=== PATIENT | male | born 1980 | race American Indian/Alaskan Native ===

== ENCOUNTER 2021-03-20 03:13 | Emergency (ER) | payer SELFPAY ==
[2021-03-20] MEDS ORDERED: ONDANSETRON 4 MG/2 ML INJ IV ONE (03:47)
[2021-03-20] MEDS ORDERED: LACTATED RINGERS 1,000 ML IV ONE (03:47)
[2021-03-20] MEDS ORDERED: HYDROmorphone 1 MG/1 ML INJ IV ONE ×2 (03:47→05:48)
--- NOTE | 2021-03-20 03:47 | Emergency Department Report ---
<KORI HUTCHINS - Last Filed: 03/20/21 05:49> ED General Adult HPI - General Chief complaint: Sickle Cell Crisis Stated complaint: CHEST PAIN/SICKLE CELL PUI?: No Time Seen by Provider: 03/20/21 03:28 Source: patient, RN notes reviewed Mode of arrival: Wheelchair Limitations: Physical Limitation - History of Present Illness Initial comments: This is a 40-year-old gentleman. He is not known to myself previously. He recently moved here from [place] about 2 days ago. He reports a history of sickle cell. He presents to the ER today with a complaint of sickle cell pain, including lower back pain, extremity pain. However, he also describes a central chest wall pain. He denies headache and neck pain. He is nauseous and vomiting. He denies diaphoresis. He denies posterior leg pain or leg swelling. Denies personal/family history of DVT and pulmonary embolism, as well as ischemic heart disease. While in [place], he has been treated at [facility], in [facility]. His pain is throbbing and aching, increases with palpation, decreases with rest, and also decreased with hydromorphone here in the emergency room. Denies Covid symptoms, urinary symptoms, fever, believes that symptoms today are coming from "the stress of my move." -: Gradual, hour(s) (3) Location: chest, back, left, right, upper extremity, lower extremity Severity scale (0 -10): 10 Quality: aching Consistency: constant Improves with: rest Worsens with: movement - Related Data Allergies Allergy/AdvReac Type Severity Reaction Status Date / Time acetaminophen [From [place]] Allergy Intermediate Vomiting Verified 03/20/21 03:35 hydrocodone [From [place]] Allergy Intermediate Vomiting Verified 03/20/21 03:35 ED Review of Systems Constitutional: malaise, weakness Eyes: denies: eye discharge ENT: denies: epistaxis Respiratory: denies: cough Cardiovascular: chest pain Gastrointestinal: nausea, vomiting. denies: abdominal pain, diarrhea Genitourinary: denies: dysuria Musculoskeletal: back pain, arthralgia, myalgia Neurological: weakness Hematological/Lymphatic: denies: easy bleeding ED Physical Exam - General Limitations: No Limitations General appearance: alert, anxious, in distress - Head Head exam: Present: atraumatic, normocephalic - Eye Eye exam: Present: normal appearance, EOMI, scleral icterus. Absent: conjunctival injection, nystagmus - ENT ENT exam: Present: normal exam, normal orophraynx, mucous membranes moist, normal external ear exam - Neck Neck exam: Present: normal inspection, full ROM. Absent: tenderness, meningismus - Respiratory Respiratory exam: Present: normal lung sounds bilaterally, chest wall tenderness. Absent: respiratory distress, wheezes, rales, rhonchi, stridor - Cardiovascular Cardiovascular Exam: Present: regular rate, normal rhythm, normal heart sounds. Absent: bradycardia, tachycardia, irregular rhythm, systolic murmur, diastolic murmur, rubs, gallop - GI/Abdominal GI/Abdominal exam: Present: soft. Absent: distended, tenderness, guarding, rebound, rigid, pulsatile mass - Rectal Rectal exam: Present: deferred - Extremities Exam Extremities exam: Present: normal inspection, full ROM, tenderness, other (2+ pulses noted in the bilateral upper and lower extremities. There is diffuse long bony tenderness. The muscular compartments are soft. Pelvis is stable.). Absent: calf tenderness - Back Exam Back exam: Present: normal inspection, paraspinal tenderness, vertebral tenderness. Absent: tenderness, CVA tenderness (R), CVA tenderness (L) - Neurological Exam Neurological exam: Present: alert, oriented X3, other (No facial droop. Tongue midline. Extraocular movements intact bilaterally. Facial sensation intact to light touch in V1, V2, V3 distribution bilaterally. 5 and a 5 strength in 4 extremities. Sensation intact to light touch in 4 extremities.). Absent: motor sensory deficit - Psychiatric Psychiatric exam: Present: anxious - Skin Skin exam: Present: warm, dry, intact, normal color. Absent: rash ED Course - Reevaluation(s) Reevaluation #1: 03/20/21 04:51 Differential diagnosis, including but not limited to: Sickle cell crisis, anemia, costochondritis, acute coronary syndrome, pulmonary embolism Assessment and plan: 40-year-old gentleman, with evidence of sickle cell crisis, manifested by anemia, hyperbilirubinemia, scleral icterus, recently moved here from [place]. He is not tachypneic or hypoxic, but EKG is abnormal without prior for comparis on, given recent travel, history of sickle cell, D-dimer sent, elevated, therefore, CT scan of the chest will be obtained. At the moment, patient states he is comfortable, and declines additional pain medicine. Reassess after CT scan has resulted. 03/20/21 05:49 Patient requesting additional pain medication. We have not been able to obtain medical records. CT scan of the chest pending. Care be transferred to the oncoming ER physician, Dr. Lenin Dobbins, follow-up on CT scan chest, repeat tropon in, repeat EKG, and arrange for final disposition. If patient's pain is acceptably controlled, and repeat troponin/EKG unchanged, will consider it reasonable to discharge this patient with outpatient follow-up. If still symptomatic, not comfortable, or any changes, would consider admission and yee sonable course of action. ED Medical Decision Making - Lab Data Result diagrams: 03/20/21 03:58 03/20/21 03:58 Vital Signs 03/20/21 03/20/21 03/20/21 03:32 03:46 04:00 Temperature Pulse Rate 67 77 69 Respiratory 17 16 12 Rate Blood Pressure 122/74 125/78 Blood Pressure 122/71 [Left] O2 Sat by Pulse 98 99 97 Oximetry 03/20/21 03/20/21 03/20/21 04:16 04:27 04:30 Temperature 97.9 F Pulse Rate 69 84 Respiratory 8 L 10 L Rate Blood Pressure 125/78 125/78 Blood Pressure [Left] O2 Sat by Pulse 96 94 Oximetry Lab Results 03/20/21 03/20/21 03/20/21 Range/Units 03:58 03:58 03:58 WBC 10.2 (4.5-11.0) K/mm3 RBC 2.98 L (3.65-5.03) M/mm3 Hgb 9.3 L (11.8-15.2) gm/dl Hct 26.2 L (35.5-45.6) % MCV 88 (84-94) fl MCH 31 (28-32) pg MCHC 35 H (32-34) % RDW 20.2 H (13.2-15.2) % Plt Count 366 (140-440) K/mm3 Percent Retic 6.90 H (0.78-2.58) % PT 15.2 H (12.2-14.9) Sec. INR 1.15 H (0.87-1.13) D-Dimer 745.40 H (0-234) ng/mlDDU Sodium 140 (137-145) mmol/L Potassium 4.1 (3.6-5.0) mmol/L Chloride 103.6 (98-107) mmol/L Carbon Dioxide 23 (22-30) mmol/L Anion Gap 18 mmol/L BUN 13 (9-20) mg/dL Glucose 99 (75-100) mg/dL Calcium 9.3 (8.4-10.2) mg/dL Magnesium 1.80 (1.7-2.3) mg/dL Total Bilirubin 5.30 H (0.1-1.2) mg/dL AST 54 H (5-40) units/L ALT 35 (7-56) units/L Alkaline Phosphatase 136 H (35-129) units/L Lactate Dehydrogenase 299 H (91-180) units/L Total Creatine Kinase 178 H (55-170) units/L Troponin T < 0.010 (0.00-0.029) ng/mL Total Protein 7.3 (6.3-8.2) g/dL Albumin 4.6 (3.9-5) g/dL Albumin/Globulin Ratio 1.7 % - EKG Data -: EKG Interpreted by Or EKG shows normal: sinus rhythm Rate: normal - EKG Data When compared to previous EKG there are: previous EKG unavailable 03/20/21 04:50 EKG is interpreted at 03: 1 7 Sinus rhythm, 72 bpm. Normal axis, QTC prolonged, 486 ms. High left ventricular voltage, incomplete right bundle branch block, biphasic T waves V2, V3. This is an abnormal EKG. This is not a STEMI. There is no prior for comparison. - Radiology Data Radiology results: report reviewed, image reviewed [facility] [address] [place] [address] XRay Report Signed Patient: BRITTAYN CASTLE MR#: [id number] : 1980 Acct:[id number] Age/Sex: 40 / M ADM Date: 03/20/21 Loc: ED Attending Dr: Ordering Physician: KORI HUTCHINS MD Date of Service: 03/20/21 Procedure(s): XR chest 1V ap Accession Number(s): [id number] cc: KORI HUTCHINS MD Fluoro Time In Minutes: CHEST 1 VIEW 03/20/2021 3:40 AM INDICATION / CLINICAL INFORMATION: acute cp. COMPARISON: None available. FINDINGS: SUPPORT DEVICES: None. HEART / MEDIASTINUM: No significant abnormality. LUNGS / PLEURA: No significant pulmonary or pleural abnormality. No pneumothorax. ADDITIONAL FINDINGS: No significant additional findings. IMPRESSION: 1. No acute findings. Signer Name: Seth Barry MD Signed: 03/20/2021 4:16 AM Workstation Name: [id number] Transcribed By: CW Dictated By: HANNAH BARRY MD Electronically Authenticated By: HANNAH BARRY MD Signed Date/Time: 03/20/21415 DD/ 5 ED Disposition Clinical Impression: Sickle cell crisis, Acute chest pain Disposition: - TO HOME OR SELFCARE Condition: Stable Instructions: Chest Pain (ED), Sickle Cell Anemia, Pediatric, Nonspecific Chest Pain, Adult Referrals: PRIMARY CARE, [Primary Care Provider] - 3-5 Days Heart Score - HEART Score History: Slightly suspicious EKG: Non-specific Age: < 45 Risk factors: No known risk factors Troponin: < normal limit HEART Score: 1 - EKG Read Time Time EKG Completed: 03:17 EKG Read Time: 03:17 - Critical Actions Critical Actions: 0-3 pts:0.9-1.7%risk of adverse cardiac event.Candidate for discharge <MICHELLE DOBBINS - Last Filed: 03/20/21 08:32> ED Review of Systems ROS: Stated complaint: CHEST PAIN/SICKLE CELL Other details as noted in HPI ED Course Vital Signs 03/20/21 03/20/21 03/20/21 03:32 03:46 04:00 Temperature Pulse Rate 67 77 69 Respiratory 17 16 12 Rate Blood Pressure 122/74 125/78 Blood Pressure 122/71 [Left] O2 Sat by Pulse 98 99 97 Oximetry 03/20/21 03/20/21 03/20/21 04:16 04:27 04:30 Temperature 97.9 F Pulse Rate 69 84 Respiratory 8 L 10 L Rate Blood Pressure 125/78 125/78 Blood Pressure [Left] O2 Sat by Pulse 96 94 Oximetry 03/20/21 03/20/21 05:00 06:00 Temperature Pulse Rate 77 72 Respiratory 14 14 Rate Blood Pressure 114/64 109/60 Blood Pressure [Left] O2 Sat by Pulse Oximetry ED Medical Decision Making - Lab Data Result diagrams: 03/20/21 03:58 03/20/21 03:58 - Medical Decision Making Patient is a pleasant 40 years old -Polish male with history of sickle cell disease. Patient signed out to me by my colleague Dr. GarciaPatient presented to the ER complaining of diffuse chest pain and generalized body ache. Patient found to be in a sickle cell crisis with reticulocyte count of 6. Patient received IV fluids and hydromorphone. D-dimer slightly elevated and patient had a CTA chest which came back negative for PE and any other acute pathology. Patient stated that he is feeling much better. I recommended the patient for admission however patient declined and stated that he want to go home and he will follow up with Dr. Dejesus. Patient advised to continue oral hydration. I gave a patient prescription for Percocet and Zofran and advised him to return to the ER if his symptoms not improved or if he develop any new symptoms. Critical care attestation.: If time is entered above; I have spent that time in minutes in the direct care of this critically ill patient, excluding procedure time. ED Disposition Is pt being admited?: No
--- NOTE | 2021-03-20 04:20 | XRay Report ---
CHEST 1 VIEW 03/20/2021 3:40 AM INDICATION / CLINICAL INFORMATION: acute cp. COMPARISON: None available. FINDINGS: SUPPORT DEVICES: None. HEART / MEDIASTINUM: No significant abnormality. LUNGS / PLEURA: No significant pulmonary or pleural abnormality. No pneumothorax. ADDITIONAL FINDINGS: No significant additional findings. IMPRESSION: 1. No acute findings. Signer Name: Seth Barry MD Signed: 03/20/2021 4:16 AM Workstation Name: [id number]
[2021-03-20 04:29] LABS: Hematocrit 26.2 % (35.5-45.6); Hemoglobin 9.3 gm/dl (11.8-15.2); Mean Corpuscular HGB Conc 35 % (32-34); Mean Corpuscular Volume 88 fl (84-94); Platelet Count 366 K/mm3 (140-440); Red Blood Count 2.98 M/mm3 (3.65-5.03)
[2021-03-20 04:35] LABS: INR 1.15 (0.87-1.13); Red Cell Distribution Width 20.2 % (13.2-15.2)
[2021-03-20 04:47] LABS: Alanine Aminotransferase 35 units/L (7-56); Albumin 4.6 g/dL (3.9-5); Blood Urea Nitrogen 13 mg/dL (9-20); Calcium 9.3 mg/dL (8.4-10.2); Hemolysis Index 7
[2021-03-20 04:54] LABS: BUN/Creatinine Ratio 22
[2021-03-20 06:25] LABS: Band Neutrophils # (Manual) 0.3 K/mm3; Myelocytes # (Manual) 0.1 K/mm3; Total Cells Counted 100
[2021-03-20 06:28] LABS: Anisocytosis 1+; Poikilocytosis 2+
[2021-03-20 06:30] LABS: Ovalocytes Few; Platelet Estimate Consistent w Auto; Schistocytes Rare; Sickle Cells 1+; Target Cells Few
[2021-03-20 06:53] VITALS: BP 109/60
--- NOTE | 2021-03-20 07:26 | Cat Scan Report ---
CTA chest with contrast INDICATION : Acute chest pain. Positive D-dimer. Sickle cell. TECHNIQUE: Axial imaging performed through the chest, with contrast bolus timing set to maximize opa cification of the pulmonary arteries. 3-plane MIP reformatted images were obtained. All CT scans at this location are performed using CT dose reduction for ALARA by means of automated exposure control. 100 mL of intravenous contrast administered. COMPARISON: None FINDINGS: Bolus/PTE: Contrast bolus timing is adequate. No filling defect is present to suggest PTE. Mediastinum: Heart and great vessels appear normal. No pathologic mediastinal adenopathy. Lungs: There is mild dependent atelectasis in the lungs with no consolidation or pleural effusion. Upper abdomen: Limited imaging of the upper abdomen shows nothing acute. Bones: Changes of osteonecrosis are seen in each humeral head with fragmentation, collapse, and seth y degenerative changes. IMPRESSION: 1. Negative for PTE. Clear lungs. 2. 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 Signer Name: Marcus Vazquez MD Signed: 03/20/2021 7:22 AM Workstation Name: [id number]
--- NOTE | 2021-03-20 14:23 | Electrocardiograph Report ---
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
== END 2021-03-20 09:20 | disposition home or self-care (01) ==
LOC: ED 03:13
DX: D57.00 Hb-SS disease with crisis, unspecified (principal); R07.89 Other chest pain; Z79.899 Other long term (current) drug therapy; Z88.8 Allergy status to other drugs, medicaments and biological substances
CPT/HCPCS: 36415; 71045; 71275; 80053; 82550; 83615; 83735; 84484; 85007; 85025; 85045; 85379; 85610; 85660; 93005; 96361; 96374; 96375; 96376; 99284; J1170; J2405; J7120; Q9967